=== PATIENT | female | born 1965 | race African-American/Black ===

== ENCOUNTER 2017-04-12 06:34 | Emergency (ER) | payer OTHER ==
[~2017-04-12 06:34] MED LIST: FLONASE ALLERG9.9 ML; HYDROCHLOROTHIA25 MG PO; LISINOPRIL20 MG PO
== END 2017-04-12 08:26 | disposition home or self-care (01) ==
LOC: CED 06:34
DX: K12.2 Cellulitis and abscess of mouth (principal); I10 Essential (primary) hypertension; Z79.899 Other long term (current) drug therapy
CPT/HCPCS: 36415; 96374; 96375; 99282; 99284; J1200; J2930